=== PATIENT | male | born 1950 | race Caucasian/White ===

== ENCOUNTER → 2020-07-01 10:57 | Outpatient (CLI) | payer OTHER, SELFPAY ==
--- NOTE | ~2020-07-01 | CT_ITS ---
EXAMINATION: CT hand LT wo con DATE: 07/01/2020 11:22 INDICATION: Open displaced fracture of distal phalanx of left thumb. TECHNIQUE: Computed tomography (CT) of the left hand was performed without intravenous contrast. Auto mated exposure control and iterative reconstruction technique were employed. The dose-length product was 107.18 mGy-cm. COMPARISON: None FINDINGS: Bone alignment is normal. No acute fracture. There is an oblique fracture of first distal p halanx with sclerosis at the margins of the bones. The distal fracture fragment demonstrates 2 mm uln ar displacement. There is fixation with 2 wires. 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 IMPRESSION: 1. Oblique fracture of first distal phalanx with fixation. No bridging bone. Reviewed, dictated and finalized at location A.
== END ==
DX: S62.522B Displaced fracture of distal phalanx of left thumb, initial encounter for open fracture (principal); X58.XXXA Exposure to other specified factors, initial encounter
CPT/HCPCS: 73200